=== PATIENT | female | born 1960 | race Caucasian/White ===

== ENCOUNTER → 2022-01-17 | Day surgery (SDC) | payer BC, OTHER ==
[~2022-01-17] MED LIST: ATENOLOL PO; ATENOLOL50 MG PO; FENTANYL CITRATE/PF 100MCG/2 ML INJ ONE; HYDROCHLOROTHIA25 MG PO; JARDIANCE10 MG PO; LIPITOR10 MG PO; LOSARTAN POTAS100 MG PO; MIDAZOLAM HCL 2 MG/2 ML VIAL ONE; OR PHACO EYE KIT ONE; PREOP PHACO EYE KIT ONE; SIMVASTATIN40 MG PO; SYNTHROID100 MCG PO; ZETIA10 MG PO
[2022-01-17 12:40] VITALS: BP 138/55
== END | disposition home or self-care (01) ==
LOC: OR 09:29
PROVIDERS: ATTEND Ophthalmology
DX: H25.11 Age-related nuclear cataract, right eye (principal); E66.9 Obesity, unspecified; E03.9 Hypothyroidism, unspecified; E11.9 Type 2 diabetes mellitus without complications; I10 Essential (primary) hypertension; K58.9 Irritable bowel syndrome, unspecified; Z01.812 Encounter for preprocedural laboratory examination; Z20.822 Contact with and (suspected) exposure to COVID-19; Z79.84 Long term (current) use of oral hypoglycemic drugs; Z79.899 Other long term (current) drug therapy; Z68.37 Body mass index [BMI] 37.0-37.9, adult; Z85.850 Personal history of malignant neoplasm of thyroid; Z86.16 Personal history of COVID-19
CPT/HCPCS: 36415; 66982; 82948; J2250; J3010; U0002; V2788